=== PATIENT | male | born 1935 | race Caucasian/White ===

== ENCOUNTER 2017-07-14 10:31 | Day surgery (SDC) | payer MEDICARE, OTHER ==
[2017-07-14] MEDS ORDERED: ONDANSETRON HCL INJ/PF 4 MG/2 ML SDV ONE (11:27)
[2017-07-14] MEDS ORDERED: NALOXONE HCL INJ/PF 0.4 MG/1 ML SDV ONE (11:27)
[2017-07-14] MEDS ORDERED: DIPHENHYDRAMINE HCL 50 MG/ML VIAL ONE (11:27)
[2017-07-14] MEDS ORDERED: FENTANYL CITRATE INJ/PF 100 MCG/2 ML AMPUL ONE (11:28)
[2017-07-14] MEDS ORDERED: GLUCAGON,HUMAN RECOMB 1 MG INJ ONE (11:29)
[2017-07-14] MEDS ORDERED: EPINEPHRINE INJ 1 MG/10 ML DISP.SYRIN ONE (11:29)
[2017-07-14] MEDS ORDERED: FLUMAZENIL INJ 0.5 MG/5 ML VIAL IV ONE (11:29)
[2017-07-14] MEDS: MIDAZOLAM 2 MG/2 ML INJ ONE ×2 (11:46→11:51)
--- NOTE | 2017-07-14 12:12 | Operative Report ---
Operative Report DATE OF SURGERY: 07/14/17 Operative Report: The risks, benefits and alternatives of the procedure including risks of bleeding, perforation requiring surgery are explained to the patient detail and informed consent is obtained. Patient was taken back to the endoscopy suite and placed in the left, lateral decubital position. Timeout was called. Conscious sedation medications are provided. A rectal examination is done which did not reveal any masses, tears or fissures. An Olympus videoscope was inserted into the patient's rectum. The scope was then carefully advanced all the way to the cecum. The cecum was identified by the usual anatomical landmarks including the ileocecal valve as well as the appendiceal office. Photodocumentation was obtained. Prep was good. Scope was then sequentially pulled back via the various segments of the colon including the ascending colon , hepatic flexure, transverse colon, splenic flexure, descending colon finding to the rectosigmoid portions of the colon. Retroflexion maneuver is performed. Patient does have a long redundant colon. PREOPERATIVE DIAGNOSIS: Personal history of polyp. Weight loss. Change of bowel habits. Diarrhea POSTOPERATIVE DIAGNOSIS: Right side inflammation status post biopsy rule out lymphocytic, collagenous colitis. Sigmoid diverticulosis. Internal hemorrhoids OPERATION: Colonoscopy with biopsy SURGEON: RIA HERRERA ANESTHESIA: Moderate Sedation - 3 mg of Versed, 50 mcg of fentanyl. Conscious sedation monitoring time 30 minutes. TISSUE REMOVED OR ALTERED: Right colon specimen obtained COMPLICATIONS: None. ESTIMATED BLOOD LOSS: None. INTRAOPERATIVE FINDINGS: As described above. PROCEDURE: Patient tolerated procedure well. No immediate postprocedure complications are noted. Patient discharged in good condition. Discharge date 07/14/2017. Discharge diet: Regular. Discharge activity: Regular. 2-3 week follow-up to discuss findings. Patient is instructed to call the office or proceed to the emergency room should there be any further problems or questions. We will wait on pathology.
[2017-07-14 13:12] VITALS: BP 142/71
== END 2017-07-14 13:20 | disposition home or self-care (01) ==
LOC: END 10:31
PROVIDERS: ATTEND Internal Medicine Gastroenterology
PROC: 0DBF8ZX Excision of Right Large Intestine, Via Natural or Artificial Opening Endoscopic, Diagnostic (ICD-10-PCS; principal; 2017-07-14 11:00)
DX: K52.9 Noninfective gastroenteritis and colitis, unspecified (principal); K57.30 Diverticulosis of large intestine without perforation or abscess without bleeding; K64.8 Other hemorrhoids; I25.10 Atherosclerotic heart disease of native coronary artery without angina pectoris; E78.2 Mixed hyperlipidemia; G47.33 Obstructive sleep apnea (adult) (pediatric); N40.0 Benign prostatic hyperplasia without lower urinary tract symptoms; E89.0 Postprocedural hypothyroidism; Z79.899 Other long term (current) drug therapy; Z79.82 Long term (current) use of aspirin; Z88.0 Allergy status to penicillin; Z85.850 Personal history of malignant neoplasm of thyroid; Z87.891 Personal history of nicotine dependence
CPT/HCPCS: 45380; 88305 ×2; J2250; J3010; J0171; J1200; J1610; J2310; J2405; J3490

== ENCOUNTER → 2018-09-15 | Outpatient (CLI) | payer MEDICARE ==
--- NOTE | 2018-09-15 12:49 | RADIOLOGY REPORT (SQ) ---
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 NUMBER OF VIEWS: Five views including obliques. TECHNIQUE: AP, lateral, oblique, and sacral radiographic images acquired of the lumbar spine. LIMITATIONS: None. FINDINGS: MINERALIZATION: Osteopenic SEGMENTATION: Normal. No transitional anatomy. ALIGNMENT: Normal. VERTEBRAE: Maintained height. No fracture or worrisome bone lesion. DISCS: High-grade disc space loss of height at L5-S1 with vacuum phenomenon. Moderate disc space los s of height from T11-12 through L1 to with bulky anterior osteophytes. POSTERIOR ELEMENTS: Marked bilateral facet arthropathy at L5-S1. Moderate bilateral facet arthropath y from L2-3 through L4-5. HARDWARE: None in the spine. PARASPINAL SOFT TISSUES: Calcified abdominal aorta without calcified aneurysm PELVIS: Not in the field of view. SI joints unremarkable OTHER: No other significant finding. IMPRESSION: Lower lumbar facet arthropathy and degenerative disc changes TECHNICAL DOCUMENTATION: JOB ID: [id number] [employer]- All Rights Reserved Reading location - IP/workstation name: [email or web address]
--- NOTE | 2018-09-15 12:52 | RADIOLOGY REPORT (SQ) ---
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 TECHNIQUE: AP pelvis and additional frog-leg view of the left hip. LIMITATIONS: None. FINDINGS: MINERALIZATION: Osteopenic LEFT HIP: No fracture or dislocation. No worrisome bone lesions. Mild joint space narrowing is pres ent with bony spurring along the acetabular rim. RIGHT HIP: No fracture or dislocation. No worrisome bone lesions. Mild joint space narrowing withou t significant bony spurring PUBIS AND ISCHIUM: No fracture. PELVIS: No fracture. SACRUM: No fracture or dislocation. No worrisome bone lesions. LOWER LUMBAR SPINE: Not included in the field of view SOFT TISSUES: Penile prosthesis hardware OTHER: No other significant finding. IMPRESSION: No acute fracture or malalignment. Mild bilateral hip joint space narrowing. Left acet abular rim bony spurring TECHNICAL DOCUMENTATION: JOB ID: [id number] [employer]- All Rights Reserved Reading location - IP/workstation name: [email or web address]
== END ==
LOC: OD 12:02
PROVIDERS: ATTEND Nurse Practitioner Family
DX: M54.42 Lumbago with sciatica, left side (principal); R10.32 Left lower quadrant pain
CPT/HCPCS: 72110

== ENCOUNTER → 2018-10-05 | Outpatient (CLI) | payer MEDICARE, OTHER ==
--- NOTE | 2018-10-05 09:30 | RADIOLOGY REPORT (SQ) ---
EXAM DESCRIPTION: MRI PELVIS WITHOUT COMPLETED DATE/TIME: 10/05/2018 8:02 am REASON FOR STUDY: PELVIC PAIN, FX OF UNSPEC LUMBOSACRAL SPINE AND PELVIS (S32.9XXA) S32.9XXA FRACTU RE OF UNSP PARTS OF LUMBOSACRAL SPINE AND PEL COMPARISON: None. TECHNIQUE: Multiplanar multisequence imaging without contrast including axial and coronal fat sat T2 , axial and coronal T1. CONTRAST TYPE AND DOSE: None. RENAL FUNCTION: Not applicable. LIMITATIONS: None. FINDINGS: PROSTATE: Prostate is enlarged. It demonstrates heterogeneous signal intensity. It inde nts the base of the bladder. The prostate measures 7.5 x 6.7 cm. SEMINAL VESICLES: Normal. PELVIS: No masses. No adenopathy. BLADDER: Normal. PELVIS SKELETAL STRUCTURES: There is marrow replacement and expansion involving the posterior element s at L5 and possibly S1. Further evaluation with biopsy is recommended. EXTRA PELVIC SOFT TISSUES: No masses. OTHER: No other significant finding. IMPRESSION: Expansile lesion involving the posterior elements at L5/S1. Neoplasm is suspected. Bio psy is recommended. Enlarged prostate gland which demonstrates heterogeneous signal intensity. Prostate measures 7.5 x 6 .7 cm. COMMENT: This report was called to ROB SAAVEDRA at09:20 on 10/05/2018. TECHNICAL DOCUMENTATION: JOB ID: [id number] [employer]- All Rights Reserved Reading location - IP/workstation name: [email or web address]
== END ==
LOC: RAD 07:20
PROVIDERS: ATTEND Physician Assistant
DX: S32.9XXA Fracture of unspecified parts of lumbosacral spine and pelvis, initial encounter for closed fracture (principal); X58.XXXA Exposure to other specified factors, initial encounter; R10.2 Pelvic and perineal pain; N40.0 Benign prostatic hyperplasia without lower urinary tract symptoms
CPT/HCPCS: 72195

== ENCOUNTER → 2018-10-14 | Outpatient (CLI) | payer MEDICARE, OTHER ==
--- NOTE | 2018-10-14 16:17 | RADIOLOGY REPORT (SQ) ---
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 Coronal T2/ HASTE imaging. We were unable to give IV contrast due to poor renal function LIMITATIONS: None. FINDINGS: VISUALIZED UPPER ABDOMEN: Limited evaluation. No acute or suspicious findings suggested. SEGMENTATION: No transitional anatomy. The lowest well-developed disc space is labeled L5-S1. ALIGNMENT: Anatomic. VERTEBRAE: Intact. BONE MARROW: Expansile lytic lesion in the posterior elements at S1 and S2. DISC SIGNAL: Diffuse decreased T2 weighted intervertebral disc signal. Disc space loss of height at L5-S1 POSTERIOR ELEMENTS: Expansile lytic lesion in the posterior elements at S1 and S2 HARDWARE: None in the spine. CORD AND CONUS: Normal in size and signal intensity. Conus at the L1 level. SOFT TISSUES: No aortic aneurysm seen. No bulky retroperitoneal adenopathy or mass. No paraspinal mas s or fluid. T11-12: Broad diffuse posterior disc bulging and moderate bilateral facet hypertrophy causes borderl ine central canal narrowing and [id number] bilateral foraminal narrowing. T12-L1: Minimal posterior disc bulging, moderate bilateral facet and ligament hypertrophy. No centr al stenosis. Mild bilateral foraminal narrowing L1-L2: No central stenosis. Moderate bilateral facet hypertrophy with mild bilateral foraminal narro wing L2-L3: Minimal diffuse posterior disc bulging and moderate bilateral facet and ligament hypertrophy. Borderline central canal stenosis. Mild bilateral foraminal narrowing. L3-L4: Mild diffuse posterior disc bulge and moderate bilateral facet and ligament hypertrophy with b orderline central canal stenosis. Mild bilateral inferior foraminal narrowing. L4-L5: Mild diffuse posterior disc bulging, moderate bilateral facet and ligament hypertrophy. Mild central canal stenosis. Moderate bilateral foraminal narrowing without exiting L4 nerve root impinge ment L5-S1: Broad diffuse posterior disc bulge and bony spurring with bulky bilateral facet and ligament h ypertrophy. SACRUM: Along the posterior elements of S1 and S2, an expansile mass is present measuring 6 cm transv erse by 4.6 cm AP by 4.5 cm craniocaudad. This is decreased signal compared to bone marrow 1 T1 weig hted images, mixed increased and decreased signal compared to bone marrow 1 T2/stir images, expands t he posterior elements with narrowing of the sacral spinal canal at the S1-2 level, with asymmetric na rrowing of the left S1 neural foramen. This finding is new compared to CT exam 07/09/2014 and unchang ed from MRI pelvis 10/05/2018. Differential is metastatic lesion versus primary bone tumor/plasmacyto ma. CT-guided biopsy of this lesion is recommended. OTHER: No other significant findings. IMPRESSION: Multilevel lumbar spine degenerative changes 6 x 4.6 x 4.5 cm mass along the posterior elements of S1 and S2, worrisome for either metastatic dise ase or primary bone tumor. CT-guided biopsy recommended. TECHNICAL DOCUMENTATION: JOB ID: [id number] [employer]- All Rights Reserved Reading location - IP/workstation name: [email or web address]
== END ==
LOC: RAD 16:45
PROVIDERS: ATTEND Orthopaedic Surgery
DX: C49.20 Malignant neoplasm of connective and soft tissue of unspecified lower limb, including hip (principal); M89.9 Disorder of bone, unspecified
CPT/HCPCS: 72148; 82565

== ENCOUNTER → 2020-02-22 | Outpatient (CLI) | payer MEDICARE ==
[2020-02-22 14:03] LABS: ABSOLUTE EOSINOPHILS # (AUTO) 0.3 10^3/uL (0.0-0.6); ABSOLUTE MONOCYTES (AUTO) 0.4 10^3/uL (0.1-1.4); ABSOLUTE NEUT (AUTO) 1.6 10^3/uL (1.7-8.2); BASOPHILS % (AUTO) 0.8 % (0-2); HEMATOCRIT 36.9 % (37.9-51.0); HEMOGLOBIN 12.8 g/dL (13.5-17.0); LYMPHOCYTES % (AUTO) 31.2 % (13-45); MEAN CORPUSCULAR HEMOGLOBIN 33.6 pg (27.0-33.4); MEAN CORPUSCULAR HGB CONC 34.8 g/dL (32.0-36.0); MEAN CORPUSCULAR VOLUME 97 fl (80-97); MONOCYTES % (AUTO) 12.6 % (3-13); PLATELET COUNT 153 10^3/uL (150-450); RED BLOOD COUNT 3.82 10^6/uL (4.35-5.55); RED CELL DISTRIBUTION WIDTH 15.1 % (11.5-14.0); SEGMENTED NEUTROPHILS % (AUTO) 47.4 % (42-78); TOTAL CELLS COUNTED % (AUTO) 100 %; WHITE BLOOD COUNT 3.3 10^3/uL (4.0-10.5)
[2020-02-22 14:23] LABS: ALBUMIN 4.2 g/dL (3.5-5.0); ALKALINE PHOSPHATASE 70 U/L (38-126); ANION GAP 7 (5-19); ASPARTATE AMINO TRANSFERASE 25 U/L (17-59); BILIRUBIN,DIRECT 0.3 mg/dL (0.0-0.4); BILIRUBIN,TOTAL 0.5 mg/dL (0.2-1.3); BLOOD UREA NITROGEN 20 mg/dL (7-20); CALCIUM 9.6 mg/dL (8.4-10.2); CARBON DIOXIDE 29 mmol/L (22-30); CHLORIDE 99 mmol/L (98-107); GLUCOSE 87 mg/dL (75-110); POTASSIUM 4.7 mmol/L (3.6-5.0); TOTAL PROTEIN 7.2 g/dL (6.3-8.2)
[2020-02-23 12:36] LABS: FREE KAPPA LIGHT CHAINS 423.5 mg/L (3.3-19.4); FREE LAMBDA LIGHT CHAINS 11.3 mg/L (5.7-26.3)
[2020-02-23 13:49] LABS: KAPPA LAMBDA RATIO 37.48 (0.26-1.65)
[2020-02-23 14:37] LABS: A/G RATIO. 1.3 (0.7-1.7); ALBUMIN 3 3.5 g/dL (2.9-4.4); ALPHA-1-GLOBULIN 0.3 g/dL (0.0-0.4); IMMUNOGLOBULIN A 106 mg/dL (61-437); IMMUNOGLOBULIN M 49 mg/dL (15-143); MONOCLONAL-SPIKE Not Observed g/dL (Not Observ); PROTEIN TOTAL SERUM 6.4 g/dL (6.0-8.5)
[2020-02-23 14:46] LABS: IMMUNOGLOBULIN G 1087 mg/dL (700-1600)
== END ==
LOC: OD 11:32
DX: C90.00 Multiple myeloma not having achieved remission (principal)
CPT/HCPCS: 36415; 80053; 83883; 85025; 86320

== ENCOUNTER → 2020-04-06 | Outpatient (CLI) | payer MEDICARE ==
--- NOTE | 2020-04-06 11:47 | ER RDC ASSESSMENT REPORT ---
Intake - In the Last 14 days Have you traveled outside [place]?: No Have you been in close contact with someone CONFIRMED: No Worked in Healthcare?: No - Symptoms Subjective Fever([place] feverish): No Chills: No Muscule Aches: No Runny Nose: No Sore Throat: No Cough (New or worsening chronic cough): No Shortness of breath: No Nausea or Vomiting: No Headache: No Abdominal Pain: No Diarrhea(3 or more loose stools in last 24 hours): No - Do you have any of the following Chronic lung disease: Asthma or emphysema or COPD: No Cystic Fibrosis: No Diabetes: No High Blood Pressure: No Cardiovascular Disease: No Chronic Kidney Disease: No Chronic Liver Disease: No Chronic blood disorder like Sickle Cell Disease: No Weak immune system due to disease or medication: Yes Immune System Comment: Patient is a chemotherapy patient, with current cancer diagnosis of Multiple Myeloma. Neurologic condition that limits movement: No Developmental delay - Moderate to Severe: No Recent (within past 2 weeks) or current : No Morbid Obesity (>100 pounds over ideal weight): No - Objective Temperature: 97 F Pulse Rate: 56 Respiratory Rate: 16 Blood Pressure: 182/90 - Denies taking his blood pressure medication this a.m. O2 Sat by Pulse Oximetry: 97 Objective: Patient is a well-appearing 84-year-old male, who presents today for COVID-19 screening. Disposition: Home; Selfcare General - General Stated Complaint: [facility] requires him to have COVID 19 testing prior to coming for his treatment Mode of Arrival: Ambulatory Information source: Patient Notes: The patient was evaluated during the global COVID-19 pandemic. That diagnosis was suspected/considered upon initial presentation. Their evaluation, treatment, and testing was consistent with current guidelines for patients who present with complaints or symptoms that may be related to COVID-19. Patient reports he is not experiencing COVID symptoms, however, he is being required by [facility] to be tested prior to going for his upcoming cheomtherapy treatment. - HPI Patient complains to provider of: Patient has no complaints Quality of pain: No pain Severity: None Pain Level: Denies Associated symptoms: None - Related Data Allergies/Adverse Reactions: Penicillins Allergy (Mild, Verified 07/14/17 10:56) HIVES RASH Past Medical History - Social History Smoking Status: Former Smoker Cigarette use (# per day): No - Patient quit smoking 30+ years ago Chew tobacco use (# tins/day): No Smoking Education Provided: No Frequency of alcohol use: None Drug Abuse: None Occupation: Retired Lives with: Family Family History: Reviewed & Not Pertinent Patient has suicidal ideation: No Patient has homicidal ideation: No - Past Medical History Cardiac Medical History: Reports: Hx Hypercholesterolemia, Hx Hypertension - HX Denies: Hx Coronary Artery Disease Pulmonary Medical History: Reports: Hx Pneumonia - CHILD Denies: Hx Asthma, Hx Bronchitis, Hx COPD Neurological Medical History: Denies: Hx Cerebrovascular Accident, Hx Seizures Malignancy Medical History: Reports Other - Current diagnosis of multiple myeloma Musculoskeletal Medical History: Denies Hx Arthritis Past Surgical History: Reports: Hx Appendectomy, Hx Cholecystectomy Physical Exam - General In distress: None Notes: PHYSICAL EXAMINATION: GENERAL: Well-appearing and in no acute distress. HEAD: Atraumatic, normocephalic. EYES: sclera anicteric, conjunctiva are normal. ENT: nares patent. Moist mucous membranes. NECK: Normal range of motion, supple without lymphadenopathy. LUNGS: CTAB and equal. No wheezes rales or rhonchi. HEART: Regular rate and rhythm without murmurs. EXTREMITIES: Normal range of motion, no pitting edema. No cyanosis. BACK: No midline or CVA tenderness. NEUROLOGICAL: Cranial nerves grossly intact. Normal speech. PSYCH: Normal mood, normal affect. SKIN: Warm, Dry, normal color and turgor, no obvious lesions or rash noted. Diagnostic Results Laboratory Results: Patient advised at this time they are considered a Person Under Investigation (PUI) for the COVID-19 Coronavirus. They have been made aware it is currently taking 5-7 days to receive their results, and [facility] will call to advise them of their result, whether it is POSITIVE or NEGATIVE. Patient Education/Counseling Counseling/Education: Patient presents with upper respiratory symptoms worrisome for possible COVID- 19. Patient does not have symptoms worrisome as an emergency such as difficulty breathing, shortness of breath, chest pain, pressure, confusion or cyanosis. Patient appears suitable for discharge. Patient's vital signs are stable and patient is nontoxic in appearance. Good return precautions have been discussed with patient, patient verbalized understanding and is agreeable with discharge plan of care at this time. Patient provided COVID-19 discharge instructions to include: As a person under investigation for COVID-19, the [place] department of Health and Human Services, division of public health advises you to adhere to the following guidance until your test results are reported to you. If your test result is positive, you will receive additional information from your provider and your local health department at that time. Remain at home until you are cleared by the health provider or public health authorities. Keep a log of visitors to your home, notify any visitors to your home of your isolation status. If you plan to move to a new address or leave the county, notify the local health department in your County. Call your doctor or seek care if you have an urgent medical need. Before seeking medical care, call ahead to get instructions from the provider before arriving at the medical office clinic or hospital. Notify them that you are being tested for the virus that causes COVID-19 so that arrangements can be made, as necessary, to prevent transmission to others in the healthcare setting. Next, notify the local health department in your county. If a medical emergency arises and you need to call 911, inform dispatch and the first responders that you are being tested for the virus that causes COVID-19. Next, notify the local health department in your county. Guidance for worsening S/SX: For worsening symptoms, patient has been advised to contact their Primary Care Provider, or go to the nearest Emergency Department. RDC Discharge - Discharge Clinical Impression: URI (upper respiratory infection) Qualifiers: URI type: unspecified URI Qualified Code(s): J06.9 - Acute upper respiratory infection, unspecified Condition: Stable Disposition: Home; Selfcare
[2020-04-06 11:52] VITALS: BP 182/90
== END ==
LOC: RDC 10:57
PROVIDERS: ATTEND Nurse Practitioner Family
DX: Z20.828 Contact with and (suspected) exposure to other viral communicable diseases (principal); J06.9 Acute upper respiratory infection, unspecified; C90.00 Multiple myeloma not having achieved remission; I10 Essential (primary) hypertension; E78.00 Pure hypercholesterolemia, unspecified; Z87.891 Personal history of nicotine dependence; Z88.0 Allergy status to penicillin
CPT/HCPCS: 87635

== ENCOUNTER → 2020-04-24 | Outpatient (CLI) | payer MEDICARE ==
[2020-04-24 09:03] LABS: ABSOLUTE EOSINOPHILS # (AUTO) 0.3 10^3/uL (0.0-0.6); ABSOLUTE LYMPHOCYTES (AUTO) 0.8 10^3/uL (0.5-4.7); ABSOLUTE MONOCYTES (AUTO) 0.6 10^3/uL (0.1-1.4); ABSOLUTE NEUT (AUTO) 1.8 10^3/uL (1.7-8.2); BASOPHILS % (AUTO) 0.6 % (0-2); EOSINOPHILS % (AUTO) 8.1 % (0-6); HEMOGLOBIN 12.5 g/dL (13.5-17.0); LYMPHOCYTES % (AUTO) 22.3 % (13-45); MEAN CORPUSCULAR HEMOGLOBIN 33.9 pg (27.0-33.4); MEAN CORPUSCULAR HGB CONC 34.7 g/dL (32.0-36.0); MEAN CORPUSCULAR VOLUME 98 fl (80-97); MONOCYTES % (AUTO) 17.1 % (3-13); PLATELET COUNT 118 10^3/uL (150-450); RED BLOOD COUNT 3.68 10^6/uL (4.35-5.55); RED CELL DISTRIBUTION WIDTH 13.4 % (11.5-14.0); SEGMENTED NEUTROPHILS % (AUTO) 51.9 % (42-78); TOTAL CELLS COUNTED % (AUTO) 100 %; WHITE BLOOD COUNT 3.4 10^3/uL (4.0-10.5)
[2020-04-24 09:12] LABS: ALBUMIN 3.7 g/dL (3.5-5.0); ALKALINE PHOSPHATASE 66 U/L (38-126); ANION GAP 5 (5-19); ASPARTATE AMINO TRANSFERASE 21 U/L (17-59); BILIRUBIN,TOTAL 0.9 mg/dL (0.2-1.3); BLOOD UREA NITROGEN 15 mg/dL (7-20); CALCIUM 8.6 mg/dL (8.4-10.2); CARBON DIOXIDE 29 mmol/L (22-30); CHLORIDE 98 mmol/L (98-107); GLUCOSE 98 mg/dL (75-110); TOTAL PROTEIN 6.3 g/dL (6.3-8.2)
== END ==
LOC: OD 08:27
PROVIDERS: ATTEND Nurse Practitioner Family
DX: C90.01 Multiple myeloma in remission (principal)
CPT/HCPCS: 36415; 80053; 83735; 84100; 85025

== ENCOUNTER → 2020-05-23 | Outpatient (CLI) | payer MEDICARE ==
[2020-05-23 08:14] LABS: ABSOLUTE LYMPHOCYTES (AUTO) 0.7 10^3/uL (0.5-4.7); ABSOLUTE MONOCYTES (AUTO) 0.1 10^3/uL (0.1-1.4); ABSOLUTE NEUT (AUTO) 3.2 10^3/uL (1.7-8.2); BASOPHILS % (AUTO) 0.4 % (0-2); EOSINOPHILS % (AUTO) 0.2 % (0-6); HEMATOCRIT 35.1 % (37.9-51.0); HEMOGLOBIN 12.1 g/dL (13.5-17.0); LYMPHOCYTES % (AUTO) 16.4 % (13-45); MEAN CORPUSCULAR HEMOGLOBIN 33.2 pg (27.0-33.4); MEAN CORPUSCULAR HGB CONC 34.3 g/dL (32.0-36.0); MEAN CORPUSCULAR VOLUME 97 fl (80-97); MONOCYTES % (AUTO) 3.1 % (3-13); PLATELET COUNT 162 10^3/uL (150-450); RED BLOOD COUNT 3.64 10^6/uL (4.35-5.55); RED CELL DISTRIBUTION WIDTH 13.4 % (11.5-14.0); SEGMENTED NEUTROPHILS % (AUTO) 79.9 % (42-78); TOTAL CELLS COUNTED % (AUTO) 100 %
[2020-05-23 08:37] LABS: ALBUMIN 3.7 g/dL (3.5-5.0); ALKALINE PHOSPHATASE 71 U/L (38-126); ANION GAP 6 (5-19); ASPARTATE AMINO TRANSFERASE 17 U/L (17-59); BILIRUBIN,TOTAL 0.6 mg/dL (0.2-1.3); BLOOD UREA NITROGEN 26 mg/dL (7-20); CALCIUM 9.2 mg/dL (8.4-10.2); CARBON DIOXIDE 27 mmol/L (22-30); CHLORIDE 97 mmol/L (98-107); GLUCOSE 162 mg/dL (75-110); PHOSPHORUS 3.2 mg/dL (2.5-4.5); POTASSIUM 4.5 mmol/L (3.6-5.0); TOTAL PROTEIN 6.4 g/dL (6.3-8.2)
== END ==
LOC: OD 07:51
PROVIDERS: ATTEND Internal Medicine
DX: C90.02 Multiple myeloma in relapse (principal)
CPT/HCPCS: 36415; 80053; 83735; 84100; 85025

== ENCOUNTER → 2020-06-19 | Outpatient (CLI) | payer MEDICARE ==
[2020-06-19 10:17] LABS: ABSOLUTE BASOPHILS # (AUTO) 0.1 10^3/uL (0.0-0.2); ABSOLUTE EOSINOPHILS # (AUTO) 0.6 10^3/uL (0.0-0.6); ABSOLUTE LYMPHOCYTES (AUTO) 0.7 10^3/uL (0.5-4.7); ABSOLUTE MONOCYTES (AUTO) 0.6 10^3/uL (0.1-1.4); ABSOLUTE NEUT (AUTO) 1.6 10^3/uL (1.7-8.2); BASOPHILS % (AUTO) 2.3 % (0-2); EOSINOPHILS % (AUTO) 15.5 % (0-6); HEMATOCRIT 32.9 % (37.9-51.0); HEMOGLOBIN 11.1 g/dL (13.5-17.0); LYMPHOCYTES % (AUTO) 20.1 % (13-45); MEAN CORPUSCULAR HEMOGLOBIN 32.7 pg (27.0-33.4); MEAN CORPUSCULAR HGB CONC 33.8 g/dL (32.0-36.0); MEAN CORPUSCULAR VOLUME 97 fl (80-97); MONOCYTES % (AUTO) 17.3 % (3-13); PLATELET COUNT 138 10^3/uL (150-450); RED CELL DISTRIBUTION WIDTH 13.9 % (11.5-14.0); SEGMENTED NEUTROPHILS % (AUTO) 44.8 % (42-78); TOTAL CELLS COUNTED % (AUTO) 100 %; WHITE BLOOD COUNT 3.6 10^3/uL (4.0-10.5)
== END ==
LOC: OD 09:21
PROVIDERS: ATTEND Internal Medicine
DX: C90.02 Multiple myeloma in relapse (principal)
CPT/HCPCS: 36415; 85025

== ENCOUNTER → 2020-07-24 | Outpatient (CLI) | payer MEDICARE ==
[2020-07-24 10:07] LABS: ABSOLUTE EOSINOPHILS # (AUTO) 0.6 10^3/uL (0.0-0.6); ABSOLUTE LYMPHOCYTES (AUTO) 0.9 10^3/uL (0.5-4.7); ABSOLUTE MONOCYTES (AUTO) 0.7 10^3/uL (0.1-1.4); ABSOLUTE NEUT (AUTO) 1.7 10^3/uL (1.7-8.2); BASOPHILS % (AUTO) 0.9 % (0-2); EOSINOPHILS % (AUTO) 15.8 % (0-6); HEMATOCRIT 34.2 % (37.9-51.0); HEMOGLOBIN 11.5 g/dL (13.5-17.0); LYMPHOCYTES % (AUTO) 23.1 % (13-45); MEAN CORPUSCULAR HEMOGLOBIN 32.2 pg (27.0-33.4); MEAN CORPUSCULAR HGB CONC 33.8 g/dL (32.0-36.0); MEAN CORPUSCULAR VOLUME 95 fl (80-97); MONOCYTES % (AUTO) 18.3 % (3-13); PLATELET COUNT 142 10^3/uL (150-450); RED BLOOD COUNT 3.58 10^6/uL (4.35-5.55); RED CELL DISTRIBUTION WIDTH 15.4 % (11.5-14.0); SEGMENTED NEUTROPHILS % (AUTO) 41.9 % (42-78); TOTAL CELLS COUNTED % (AUTO) 100 %
== END ==
LOC: OD 09:01
PROVIDERS: ATTEND Internal Medicine
DX: C90.02 Multiple myeloma in relapse (principal)
CPT/HCPCS: 36415; 85025